=== PATIENT | female | born 1995 | race Caucasian/White ===

== ENCOUNTER 2023-03-19 04:48 | Inpatient (IN) | payer BC ==
[2023-03-19 05:58] LABS: BASOPHILS PERCENT AUTO 0.3 % (0.0-1.0); EOSINOPHILS ABSOLUTE AUTO 0.1 K/mm3 (0.0-0.4); HEMATOCRIT 42.2 % (37.0-47.0); HEMOGLOBIN 13.6 gm/dl (12.0-16.0); IMMATURE GRAN ABSOLUTE AUTO 0.06 K/mm3 (0.00-0.05); IMMATURE GRAN PERCENT AUTO 0.5 % (0.0-0.4); LYMPHOCYTES ABSOLUTE AUTO 2.6 K/mm3 (1.0-4.8); LYMPHOCYTES PERCENT AUTO 22.2 % (24.0-44.0); MEAN CORPUSCULAR HEMOGLOBIN 27.1 pg (28.0-32.0); MEAN CORPUSCULAR HGB CONC 32.2 g/dl (32.0-36.0); MEAN CORPUSCULAR VOLUME 84.1 fl (83.0-99.0); MEAN PLATELET VOLUME 12.1 fl (9.4-12.3); MONOCYTES ABSOLUTE AUTO 0.9 K/mm3 (0.0-0.8); MONOCYTES PERCENT AUTO 8.2 % (0.0-8.0); NEUTROPHILS ABSOLUTE AUTO 7.8 K/mm3 (1.8-7.7); NEUTROPHILS PERCENT AUTO 67.8 % (41.0-71.0); PLATELET COUNT,PLT 185 K/mm3 (150-400); RED BLOOD CELL COUNT 5.02 M/mm3 (4.10-5.30); WHITE BLOOD CELL COUNT,WBC 11.49 K/mm3 (3.9-11.3)
[2023-03-19] MEDS ORDERED: Lactated Ringers 1,000 ML IV SCH ×2 (06:00→06:45)
[2023-03-19] MEDS ORDERED: Metoclopramide 10 MG/2 ML SDV IVPUSH ONE ×2 (06:34→07:00)
[2023-03-19] MEDS ORDERED: Citric Acid/Sodium Citrate Solution 30 ML Cup PO ONE ×2 (06:34→07:00)
[2023-03-19] MEDS ORDERED: Ondansetron 4 MG/2 ML SDV ONE (06:53)
[2023-03-19] MEDS ORDERED: Oxytocin 10 Units/1 ML SDV ONE ×2 (06:53→08:00)
[2023-03-19] MEDS ORDERED: Dexamethasone 4 MG/ML SDV ONE (06:53)
[2023-03-19] MEDS ORDERED: Ketorolac 30 MG/ML SDV ONE (06:53)
[2023-03-19] MEDS ORDERED: Lactated Ringers 2,000 ML ONE (06:53)
[2023-03-19] MEDS ORDERED: Bupivacaine 0.5% 30 ML SDV ONE (07:00)
[2023-03-19] MEDS ORDERED: ceFAZolin 2 GM in Sodium Chloride 0.9% 50 ML IV ONE ×2 (07:00→07:50)
[2023-03-19] MEDS ORDERED: ePHEDrine 50 MG/ML SDV ONE (07:03)
[2023-03-19] MEDS ORDERED: Morphine PF 10 MG/10 ML SDV ONE (07:07)
[2023-03-19] MEDS ORDERED: Sodium Chloride 0.9% 10 ML Syringe FLUSH PRN (07:30)
[2023-03-19] MEDS ORDERED: Oxytocin/Lactated Ringers 30 UNIT/500 ML BAG IV SCH (08:00)
[2023-03-19] MEDS ORDERED: ceFAZolin 2 GM Vial ONE (08:00)
[2023-03-19] MEDS ORDERED: Meperidine 50 MG/ML Vial IVPUSH PRN (08:28)
[2023-03-19] MEDS ORDERED: fentaNYL 100 MCG/2 ML SDV IVPUSH PRN (08:28)
[2023-03-19] MEDS ORDERED: diphenhydrAMINE 50 MG/ML SDV IVPUSH PRN ×2 (08:28→10:45)
[2023-03-19] MEDS ORDERED: Ondansetron 4 MG/2 ML SDV IVPUSH PRN (08:28)
[2023-03-19] MEDS ORDERED: Naloxone 0.4 MG/ML SDV IVPUSH PRN (10:45)
[2023-03-19] MEDS ORDERED: ePHEDrine 50 MG/ML SDV IVPUSH PRN (10:45)
[2023-03-19] MEDS ORDERED: Dextrose 5%-Lactated Ringers 1,000 ML IV SCH (10:45)
[2023-03-19] MEDS: Ketorolac 30 MG/ML SDV IVPUSH SCH ×2 (14:09→21:49)
[2023-03-19] MEDS ORDERED: Magnesium Hydroxide 400 MG/5 ML Susp 30 ML Cup PO PRN (21:00)
[2023-03-19] MEDS: Docusate Sodium 100 MG Cap PO SCH (21:49)
[2023-03-20] MEDS: Ketorolac 30 MG/ML SDV IVPUSH SCH (04:19)
[2023-03-20 06:17] LABS: BASOPHILS PERCENT AUTO 0.2 % (0.0-1.0); EOSINOPHILS ABSOLUTE AUTO 0.1 K/mm3 (0.0-0.4); EOSINOPHILS PERCENT AUTO 0.3 % (0.0-6.0); HEMOGLOBIN 9.9 gm/dl (12.0-16.0); IMMATURE GRAN PERCENT AUTO 0.6 % (0.0-0.4); LYMPHOCYTES ABSOLUTE AUTO 2.7 K/mm3 (1.0-4.8); LYMPHOCYTES PERCENT AUTO 16.3 % (24.0-44.0); MEAN CORPUSCULAR HEMOGLOBIN 27.5 pg (28.0-32.0); MEAN CORPUSCULAR HGB CONC 31.9 g/dl (32.0-36.0); MEAN CORPUSCULAR VOLUME 86.1 fl (83.0-99.0); MEAN PLATELET VOLUME 11.8 fl (9.4-12.3); MONOCYTES ABSOLUTE AUTO 1.3 K/mm3 (0.0-0.8); MONOCYTES PERCENT AUTO 7.8 % (0.0-8.0); NEUTROPHILS ABSOLUTE AUTO 12.5 K/mm3 (1.8-7.7); NEUTROPHILS PERCENT AUTO 74.8 % (41.0-71.0); PLATELET COUNT,PLT 139 K/mm3 (150-400); WHITE BLOOD CELL COUNT,WBC 16.71 K/mm3 (3.9-11.3)
[2023-03-20] MEDS: Docusate Sodium 100 MG Cap PO SCH ×2 (09:01→21:07)
[2023-03-20] MEDS: Prenatal Multivitamin with Calcium/Folic Acid/Iron Tab PO SCH (09:01)
[2023-03-20] MEDS: Acetaminophen/oxyCODONE 325-5 MG Tab PO PRN ×2 (13:14→19:16)
[2023-03-21] MEDS: Acetaminophen/oxyCODONE 325-5 MG Tab PO PRN ×2 (01:15→07:26)
[2023-03-21] MEDS: Prenatal Multivitamin with Calcium/Folic Acid/Iron Tab PO SCH ×2 (07:26→08:18)
[2023-03-21] MEDS: Docusate Sodium 100 MG Cap PO SCH ×2 (07:26→08:18)
== END 2023-03-21 11:55 | disposition home or self-care (01) | DRG 540 ==
LOC: JD.OB 05:36
PROVIDERS: ADMIT Obstetrics & Gynecology; ATTEND Obstetrics & Gynecology
PROC: 10D00Z1 Extraction of Products of Conception, Low, Open Approach (ICD-10-PCS; principal; 2023-03-19 08:00)
DX: O32.1XX0 Maternal care for breech presentation, not applicable or unspecified (principal); O48.0 Post-term pregnancy; O99.824 Streptococcus B carrier state complicating childbirth; Z37.0 Single live birth; Z3A.40 40 weeks gestation of pregnancy
CPT/HCPCS: 01961; 36415; 59025; 85025; 86592; 86850; 86900; 86901; 94762; A9270-GY; J0690; J1100; J1885; J2274; J2405; J2590; J2765; J3490; J7120; J7121